=== PATIENT | female | born 2000 | race Caucasian/White ===

== ENCOUNTER 2023-02-05 21:04 | Emergency (ER) | payer OTHER ==
[2023-02-05] MEDS ORDERED: Acetaminophen 500 MG TAB ONE (21:33)
[2023-02-05 22:36] LABS: SARS-CoV-2 NAA Rapid Test Not Detected (NotDetected)
== END 2023-02-05 22:25 | disposition home or self-care (01) ==
LOC: CSHERS 21:04
DX: H66.92 Otitis media, unspecified, left ear (principal); B34.9 Viral infection, unspecified; Z20.822 Contact with and (suspected) exposure to COVID-19
CPT/HCPCS: 87081; 87430; 99283